=== PATIENT | female | born 1985 | race Caucasian/White ===

== ENCOUNTER 2021-05-28 16:25 | Emergency (ER) | payer BC, OTHER ==
[2021-05-28 17:03] VITALS: BP 101/71; PULSE 98; TEMP 97.9; BMI 23.3
[2021-05-28] MEDS ORDERED: IBUPROFEN 600 MG TABLET (FP) PO ONE ×2 (17:22→17:26)
== END 2021-05-28 17:52 | disposition home or self-care (01) ==
LOC: JER 16:25 → JERFT 16:25
DX: S92.524A Nondisplaced fracture of middle phalanx of right lesser toe(s), initial encounter for closed fracture (principal)
CPT/HCPCS: 73630-TC-RT-FY; 99283-25